=== PATIENT | female | born 1975 | race Hispanic/Latino ===

== ENCOUNTER 2018-04-28 21:46 | Emergency (ER) | payer SELFPAY ==
[2018-04-28] MEDS ORDERED: Naproxen 500 MG TAB ONE (22:24)
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
== END 2018-04-28 22:28 | disposition home or self-care (01) ==
LOC: MADERS 21:46
DX: S96.911A Strain of unspecified muscle and tendon at ankle and foot level, right foot, initial encounter (principal); F17.210 Nicotine dependence, cigarettes, uncomplicated; W17.89XA Other fall from one level to another, initial encounter

== ENCOUNTER 2018-08-06 09:54 | Emergency (ER) | payer SELFPAY ==
[~2018-08-06 09:54] MED LIST: Sterile Water Irrigation 250 ML BOT ONE
[2018-08-06] MEDS ORDERED: Adacel (T-DAP) 0.5 ML VIAL ONE (10:10)
[2018-08-06] MEDS ORDERED: Lidocaine 1% 20 ML MDV ONE (10:10)
[2018-08-06] MEDS ORDERED: Bacitracin Zinc 1 Packet ONE (10:28)
== END 2018-08-06 10:30 | disposition home or self-care (01) ==
LOC: MADERS 09:54
DX: S91.112A Laceration without foreign body of left great toe without damage to nail, initial encounter (principal); W27.0XXA Contact with workbench tool, initial encounter
CPT/HCPCS: 12001; 90715; J2001

== ENCOUNTER 2019-05-22 07:29 | Emergency (ER) | payer SELFPAY ==
[2019-05-22] MEDS ORDERED: Ibuprofen 600 MG TAB ONE (08:37)
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
== END 2019-05-22 09:34 | disposition home or self-care (01) ==
LOC: MADERS 07:29
DX: S60.222A Contusion of left hand, initial encounter (principal); V89.2XXA Person injured in unspecified motor-vehicle accident, traffic, initial encounter
CPT/HCPCS: 71046; 72100; 72125